=== PATIENT | male | born 1975 | race Caucasian/White ===

== ENCOUNTER 2023-04-06 12:46 | Emergency (ER) | payer BC ==
[~2023-04-06] VITALS: Ht 190.5 cm; Wt 100.0 kg
[2023-04-06 13:02] VITALS: BP 121/83
[2023-04-06 13:18] LABS: BASO # 0.02 K/mm3 (0.02-0.10); EOS # 0.15 K/mm3 (0.04-0.40); EOS % 2.1 % (0.0-4.0); HEMATOCRIT 41.7 % (42.0-52.0); HEMOGLOBIN 13.9 g/dL (13.5-18.0); LYMPH# 2.27 K/mm3 (1.50-4.00); MEAN CELL VOLUME 91 fl (78-100); MEAN CORPUSCULAR HEMOGLOBIN 30 pg (27-31); MEAN CORPUSCULAR HGB CONC 33 g/dL (33-37); MEAN PLATELET VOLUME 9.9 fl (7.4-10.4); MONO # 0.37 K/mm3 (0.20-0.80); NEU # 4.46 K/mm3 (1.40-6.50); PLATELET COUNT 269 K/mm3 (130-400); RED BLOOD COUNT 4.57 M/mm3 (4.20-5.60); RED CELL DISTRIBUTION WIDTH 12.7 % (11.5-14.5); WHITE BLOOD COUNT 7.3 K/mm3 (4.8-10.8)
[2023-04-06] MEDS ORDERED: GENTAMICIN EYE D5 ML OD (13:55)
== END 2023-04-06 14:02 | disposition home or self-care (01) ==
LOC: ED 12:46
PROVIDERS: Family Medicine
DX: A08.4 Viral intestinal infection, unspecified (principal); H01.001 Unspecified blepharitis right upper eyelid